=== PATIENT | male | born 1970 | race Caucasian/White ===

== ENCOUNTER 2025-08-08 17:30 | Outpatient (RCR) | payer SELFPAY | END 2025-08-16 23:59 | LOC: NS 17:30 | DX: Z71.3 Dietary counseling and surveillance (principal) ==

== ENCOUNTER 2025-08-15 11:46 | Outpatient (RCR) | payer SELFPAY | END 2025-08-16 23:59 | LOC: NS 11:46 | DX: Z71.3 Dietary counseling and surveillance (principal) ==